=== PATIENT | female | born 1960 | race Caucasian/White ===

== ENCOUNTER 2018-06-30 05:23 | Observation (INO) | payer OTHER ==
[2018-06-30] MEDS: CEFAZOLIN 2 GM/50 ML (PMX) 50 ML IVPB (06:24)
[2018-06-30] MEDS: LACTATED RINGER'S 1,000 ML IV* (06:24)
[2018-06-30] MEDS ORDERED: SUCCINYLCHOLINE CHLORIDE 100 MG/5 ML SYG IV (07:04)
[2018-06-30] MEDS ORDERED: LIDOCAINE 2% (SDV) 5 ML INJ (07:04)
[2018-06-30] MEDS ORDERED: PROPOFOL 20 ML (07:04)
[2018-06-30] MEDS ORDERED: NEOSTIGMINE 3 MG/3 ML SYRINGE ×2 (07:04→08:49)
[2018-06-30] MEDS ORDERED: GLYCOPYRROLATE 0.4 MG INJ ×2 (07:04→08:49)
[2018-06-30] MEDS ORDERED: ROCURONIUM 50 MG INJ ×2 (07:04→08:49)
[2018-06-30] MEDS ORDERED: MEPERIDINE /PF (100 MG/2 ML) AMPULE (07:06)
[2018-06-30] MEDS: GELATIN SIZE 100 SPONGE (07:43)
[2018-06-30] MEDS: THROMBIN 5000 UNIT VIAL (07:43)
[2018-06-30] MEDS: BUPIVACAINE 0.25% (MPF) 30 ML INJ (07:43)
[2018-06-30] MEDS: POLYMYXIN/BACITRACIN 1L IRRIG (07:43)
[2018-06-30] MEDS ORDERED: ONDANSETRON 4 MG INJ (08:22)
[2018-06-30] MEDS ORDERED: METOCLOPRAMIDE 10 MG INJ (08:22)
[2018-06-30] MEDS ORDERED: EPHEDrine SULFATE 50 MG/5 ML SYG (08:49)
[2018-06-30] MEDS ORDERED: MIDAZOLAM 1 MG/ML 2 ML INJ IV (09:30)
[2018-06-30] MEDS ORDERED: METOCLOPRAMIDE 10 MG INJ IV (09:30)
[2018-06-30] MEDS ORDERED: DIPHENHYDRAMINE 50 MG INJ IV (09:30)
[2018-06-30] MEDS ORDERED: ONDANSETRON 4 MG INJ IV (09:30)
[2018-06-30] MEDS ORDERED: LABETALOL HCL 20MG INJ IV (09:30)
[2018-06-30] MEDS ORDERED: EPHEDrine SULFATE 50 MG/5 ML SYG IV (09:30)
[2018-06-30] MEDS ORDERED: FENTAnyl 50 MCG/ML VIAL IV ×3 (09:30)
[2018-06-30] MEDS ORDERED: hydrALAzine 20 MG INJ IV (09:30)
[2018-06-30] MEDS ORDERED: MEPERIDINE 25 MG INJ IV (09:30)
[2018-06-30] MEDS ORDERED: HYDROmorphONE 1 MG/5 ML IV SYRINGE IV ×3 (09:30)
[2018-06-30] MEDS ORDERED: ACETAMINOPHEN 325 MG TAB PO (10:00)
[2018-06-30] MEDS ORDERED: TRIMETHOBENZAMIDE 100 MG/ML VIAL IM (10:00)
[2018-06-30] MEDS ORDERED: ZOLPIDEM 5 MG TAB PO (10:00)
[2018-06-30] MEDS ORDERED: NALOXONE (0.4 MG/ML) INJ IV (10:00)
[2018-06-30] MEDS ORDERED: DIAZEPAM 5 MG TAB PO (10:00)
[2018-06-30] MEDS ORDERED: PROCHLORPERAZINE 10 MG TAB PO (10:00)
[2018-06-30] MEDS ORDERED: AL HYDROX/MG HYDROX/SIMETH 30 ML CUP PO (10:00)
[2018-06-30] MEDS ORDERED: BETHANECHOL 25 MG TAB PO (10:00)
[2018-06-30] MEDS ORDERED: DIPHENHYDRAMINE 50 MG CAP PO (10:00)
[2018-06-30] MEDS ORDERED: NACL 0.9% 3 ML SYG IV (10:00)
[2018-06-30] MEDS ORDERED: DIAZEPAM 5 MG/ML SYG IM (10:00)
[2018-06-30] MEDS: HYDROmorphONE 0.2 MG/ML PCA IV (10:07)
[2018-06-30] MEDS: CEFAZOLIN 1 GM/50 ML (PMX) 50 ML IVPB ×3 (13:08→23:39)
[2018-06-30] MEDS: DEXTROSE 5%-0.45% NACL 1,000 ML IV ×3 (13:09→23:39)
[2018-06-30] MEDS: ONDANSETRON 4 MG INJ IV (19:33)
[2018-06-30] MEDS: CIPROFLOXACIN 500 MG TAB PO (20:41)
[2018-06-30] MEDS: CEPASTAT LOZENGE MT (20:41)
[2018-06-30] MEDS: RANITIDINE 150 MG TAB PO (20:41)
[2018-07-01] MEDS: LACTATED RINGER'S 1,000 ML IV* (04:53)
[2018-07-01] MEDS: CEFAZOLIN 1 GM/50 ML (PMX) 50 ML IVPB (05:03)
[2018-07-01 05:21] LABS: HEMATOCRIT 33.2 % (37.0-47.0); HEMOGLOBIN 10.7 g/dl (12.0-16.0)
[2018-07-01 06:04] LABS: ANION GAP 8 (5-13); BLOOD UREA NITROGEN 10 mg/dl (7-20); CALCIUM 8.6 mg/dl (8.4-10.2); CARBON DIOXIDE 27 mmol/L (21-31); CHLORIDE 105 mmol/L (97-110); Estimated GFR > 60 mL/min (>60); GLUCOSE 105 mg/dl (70-220); POTASSIUM 4.6 mmol/L (3.5-5.1); SODIUM 140 mmol/L (135-144)
[2018-07-01] MEDS ORDERED: BETHANECHOL 25 MG TAB PO (08:00)
[2018-07-01] MEDS: ASCORBIC ACID 500 MG TAB PO (08:29)
[2018-07-01] MEDS: FERROUS SULFATE (EC) 325 MG TAB PO ×2 (08:29→12:17)
[2018-07-01] MEDS: RANITIDINE 150 MG TAB PO (08:30)
[2018-07-01] MEDS: DOCUSATE SODIUM 100 MG CAP PO (08:30)
[2018-07-01] MEDS: CIPROFLOXACIN 500 MG TAB PO (08:30)
[2018-07-01] MEDS: METOPROLOL (XL) 50 MG TAB PO (08:32)
[2018-07-01] MEDS: ONDANSETRON 4 MG INJ IV (08:34)
[2018-07-01] MEDS: HYDROCODONE/APAP (5/325) TAB PO ×2 (11:42→17:29)
[2018-07-01 14:41] LABS: ADD UMIC YES; UR ASCORBIC ACID NEGATIVE (NEGATIVE); UR BACTERIA FEW /HPF (NONE SEEN); UR BILIRUBIN (Dip) NEGATIVE (NEGATIVE); UR BLOOD (Dip) 2+ mg/dL (NEGATIVE); UR CLARITY CLEAR (CLEAR); UR COLOR STRAW (YELLOW); UR GLUCOSE (Dip) NEGATIVE (NEGATIVE); UR KETONES (Dip) NEGATIVE (NEGATIVE); UR LEUKOCYTE ESTERASE (Dip) NEGATIVE Leu/ul (NEGATIVE); UR NITRITE (Dip) NEGATIVE (NEGATIVE); UR RBC 27 /HPF (0-5); UR SPECIFIC GRAVITY (Dip) 1.013 (1.003-1.030); UR TOTAL PROTEIN (Dip) NEGATIVE (NEGATIVE); UR UROBILINOGEN (Dip) NEGATIVE (NEGATIVE); UR WBC 12 /HPF (0-5)
== END 2018-07-01 18:20 | disposition home or self-care (01) ==
LOC: REC 05:23 → SDS 05:23 → REC 09:32 → MS1 11:34
DX: M48.061 Spinal stenosis, lumbar region without neurogenic claudication (principal); I10 Essential (primary) hypertension; N39.0 Urinary tract infection, site not specified
CPT/HCPCS: 63047; 72020; 80048; 81001; 85014; 85018; 86850; 86900; 86901; 86920; 87086; 88304; 88311; 97116; 97161; 97530